=== PATIENT | male | born 1970 | race Caucasian/White ===

== ENCOUNTER 2017-12-30 15:59 | Emergency (ER) | payer MEDICAID ==
[~2017-12-30] VITALS: Ht 185.4 cm; Wt 81.8 kg
[~2017-12-30 15:59] MED LIST: ADVIL200 MG OR; ALPRAZOLAM2 M1 PO; AVELOX400 MG OR; CIPRO500 MG OR; DARVOCET-N 100100 MG OR; DOXYCYCL HYC100 MG PO; LISINOPRIL20 M1 PO; LOPRESSOR25 MG PO; LORTAB 5-325 MG1 TAB PO; METHADONE HCL10 MG PO; NAPROSYN500 MG PO; OXYCODONE HCL30 MG PO; OXYCODONE30 MG OR; PERCOCET 5/321 COMBO PO
[2017-12-30] MEDS ORDERED: BACTRIM DS1 TAB PO (16:58)
[2017-12-30] MEDS ORDERED: CIPRO XR500 MG PO (16:58)
[2017-12-30 17:26] VITALS: BP 147/89
== END 2017-12-30 17:26 | disposition home or self-care (01) | DRG 605 ==
LOC: ED 15:59
PROC: 0HQLXZZ Repair Left Lower Leg Skin, External Approach (ICD-10-PCS; principal; 2017-12-30)
DX: S81.812A Laceration without foreign body, left lower leg, initial encounter (principal); F17.210 Nicotine dependence, cigarettes, uncomplicated; W29.3XXA Contact with powered garden and outdoor hand tools and machinery, initial encounter; Y93.H2 Activity, gardening and landscaping

== ENCOUNTER 2018-01-12 19:10 | Emergency (ER) | payer MEDICAID ==
[~2018-01-12 19:10] MED LIST changes: +BACTRIM DS1 TAB PO; +CIPRO XR500 MG PO
[2018-01-13] MEDS ORDERED: BACTRIM DS1 TAB PO (17:56)
[2018-01-13] MEDS ORDERED: LEVAQUIN750 M1 PO (18:13)
== END 2018-01-12 19:40 | disposition left against medical advice (07) | DRG 951 ==
LOC: ED 19:10 → LWOBS 19:40
DX: Z91.19 Patient's noncompliance with other medical treatment and regimen (principal)

== ENCOUNTER 2018-01-13 17:28 | Emergency (ER) | payer MEDICAID ==
[~2018-01-13] VITALS: Ht 185.4 cm; Wt 84.0 kg
[2018-01-13] MEDS ORDERED: BACTRIM DS1 TAB PO (17:56)
[2018-01-13] MEDS ORDERED: LEVAQUIN750 M1 PO (18:13)
[2018-01-13 18:32] VITALS: BP 145/75
== END 2018-01-13 18:33 | disposition home or self-care (01) | DRG 863 ==
LOC: ED 17:28
PROC: 0H9LXZZ Drainage of Left Lower Leg Skin, External Approach (ICD-10-PCS; principal; 2018-01-13)
DX: T81.4XXA Infection following a procedure, initial encounter (principal); L02.416 Cutaneous abscess of left lower limb; R22.42 Localized swelling, mass and lump, left lower limb

== ENCOUNTER 2018-01-15 17:41 | Emergency (ER) | payer MEDICAID ==
[~2018-01-15] VITALS: Ht 185.4 cm; Wt 77.0 kg
[~2018-01-15 17:41] MED LIST changes: +LEVAQUIN750 M1 PO
[2018-01-15 18:50] VITALS: BP 135/77
== END 2018-01-15 18:50 | disposition home or self-care (01) | DRG 950 ==
LOC: ED 17:41
DX: S81.812D Laceration without foreign body, left lower leg, subsequent encounter (principal); Z48.01 Encounter for change or removal of surgical wound dressing

== ENCOUNTER 2018-11-13 14:10 | Emergency (ER) | payer MEDICAID ==
[~2018-11-13] VITALS: Ht 185.4 cm; Wt 75.0 kg
[2018-11-13] MEDS ORDERED: MOTRIN800 MG PO (14:21)
[2018-11-13] MEDS ORDERED: FLEXERIL PO (14:21)
[2018-11-13] MEDS ORDERED: TRAMADOL HYDROC50 MG PO (14:21)
[2018-11-13 14:30] VITALS: BP 145/88
== END 2018-11-13 14:30 | disposition home or self-care (01) ==
LOC: ED 14:10
DX: M54.5 Low back pain (principal); F17.200 Nicotine dependence, unspecified, uncomplicated

== ENCOUNTER 2019-05-03 19:05 | Observation (INO) | payer MEDICAID ==
[~2019-05-03] VITALS: Ht 185.4 cm; Wt 73.4 kg
[~2019-05-03 19:05] MED LIST changes: +FLEXERIL PO; +MOTRIN800 MG PO; +TRAMADOL HYDROC50 MG PO
[2019-05-03 20:08] LABS: HEMATOCRIT 45.9 % (39.0-50.0); HEMOGLOBIN 15.4 g/dl (14.0-18.0); IMMATURE GRANULOCYTES 0.7 % (0.0-5.0); MEAN CELL VOLUME 91.4 fL CALC (80.0-100.0); MEAN CORPUSCULAR HGB 30.7 pG CALC (26.0-32.0); MEAN CORPUSCULAR HGB CONC 33.6 g/L CALC (32.0-36.0); NEUT# 7.5 thou/uL (1.82-7.42); RED BLOOD COUNT 5.02 mill/uL (4.70-6.10); RED CELL DISTRI WIDTH 13.2 % (11.5-15.5)
[2019-05-03 20:11] LABS: ALBUMIN 4.4 g/dL (3.2-5.0); ALKALINE PHOSPHATASE 82 u/l (38-126); AMYLASE 51 u/l (30-110); BUN 11 mg/dL (9-20); BUN/CREATININE RATIO 14 (12-20 (CALC)); CHLORIDE 100 mmol/l (95-108); CREATININE 0.8 mg/dL (0.7-1.3); GFR > 60 ML/MIN (>=60 (CALC)); GFR FOR AFR.AMER. > 60 ML/MIN (>=60 (CALC)); LIPASE 22 u/l (23-300); POTASSIUM 4.5 mmol/l (3.5-5.1); SGOT/AST 31 u/l (17-59); SODIUM 139 mmol/l (137-146); TOTAL PROTEIN 7.5 g/dL (6.3-8.2)
[2019-05-03 20:17] LABS: ANION GAP 14 (6-22 (CALC)); BILIRUBIN, TOTAL 0.8 mg/dL (0.0-1.4); CARBON DIOXIDE 30 mmol/l (22-30)
[2019-05-03 20:23] LABS: MYOGLOBIN 41 ng/mL (0 - 121)
[2019-05-03 22:50] VITALS: BP 160/110
[2019-05-04 00:26] VITALS: BP 127/75
[2019-05-04 01:44] LABS: URINE BILIRUBIN - DIPSTICK NEGATIVE (NEGATIVE); URINE BLOOD DIPSTICK NEGATIVE (NEGATIVE); URINE COLOR YELLOW; URINE GLUCOSE - DIPSTICK NEGATIVE (NEGATIVE); URINE KETONE NEGATIVE (NEGATIVE); URINE LEUK ESTERASE NEGATIVE (NEGATIVE); URINE NITRITE - DIPSTICK NEGATIVE (Negative); URINE PH 6.5 (4.5-8.0); URINE PROTEIN - DIPSTICK NEGATIVE (NEG-TRACE); URINE UROBILINOGEN - DIPSTICK 0.2 E.U./dL (0.2)
[2019-05-04 01:46] LABS: BARBITURATES NEGATIVE (NEGATIVE); COCAINE NEGATIVE (NEGATIVE); METHADONE NEGATIVE (NEGATIVE); TETRAHYDROCANNABIONOL NEGATIVE (NEGATIVE); TRICYLIC ANTIDEPRESSANTS NEGATIVE (NEGATIVE)
[2019-05-04 01:47] LABS: OXCYCODONE NEGATIVE (NEGATIVE)
[2019-05-04 04:00] VITALS: BP 127/81
[2019-05-04 08:37] VITALS: BP 126/71
[2019-05-04 11:02] VITALS: BP 116/69
== END 2019-05-04 12:52 | disposition home or self-care (01) ==
LOC: ED 19:05 → ED-I 21:01 → ED 21:19 → MS2 21:20
PROVIDERS: Emergency Medicine; ADMIT Internal Medicine; ATTEND Internal Medicine
DX: R07.9 Chest pain, unspecified (principal); I15.8 Other secondary hypertension; F15.10 Other stimulant abuse, uncomplicated; F19.10 Other psychoactive substance abuse, uncomplicated; F17.290 Nicotine dependence, other tobacco product, uncomplicated; R51 Headache
CPT/HCPCS: G0378

== ENCOUNTER 2019-09-24 15:16 | Emergency (ER) | payer MEDICAID ==
[~2019-09-24] VITALS: Ht 185.4 cm; Wt 77.4 kg
[2019-09-24] MEDS ORDERED: METRONIDAZOL500 MG PO (15:50)
[2019-09-24] MEDS ORDERED: CLEOCIN300 MG PO (15:52)
[2019-09-24 16:18] VITALS: BP 150/105
== END 2019-09-24 16:17 | disposition home or self-care (01) ==
LOC: ED 15:16
DX: L03.011 Cellulitis of right finger (principal); Z20.2 Contact with and (suspected) exposure to infections with a predominantly sexual mode of transmission; N50.819 Testicular pain, unspecified; R36.9 Urethral discharge, unspecified; M79.644 Pain in right finger(s)

== ENCOUNTER 2020-02-20 | Emergency (ER) | payer MEDICAID ==
[~2020-02-20] MED LIST changes: +CLEOCIN300 MG PO; +METRONIDAZOL500 MG PO
[2020-02-20] MEDS ORDERED: TRIAMCINOLON0.025 % EX (23:21)
[2020-02-20] MEDS ORDERED: TRAMADOL HYDROC50 MG PO (23:21)
[2020-02-20] MEDS ORDERED: CLINDAMYCIN300 M1 PO (23:21)
[2020-02-20] MEDS ORDERED: BACTRIM DS1 TAB PO (23:21)
== END 2020-02-20 23:37 | disposition home or self-care (01) ==
DX: S70.362A Insect bite (nonvenomous), left thigh, initial encounter (principal); L03.116 Cellulitis of left lower limb; F17.290 Nicotine dependence, other tobacco product, uncomplicated; W57.XXXA Bitten or stung by nonvenomous insect and other nonvenomous arthropods, initial encounter; Z88.0 Allergy status to penicillin

== ENCOUNTER 2023-12-07 12:32 | Emergency (ER) | payer OTHER ==
[~2023-12-07] VITALS: Ht 185.4 cm; Wt 70.0 kg
[2023-12-07] VITALS (48 sets, daily range): BP systolic 135–192; BP diastolic 91–131
[~2023-12-07 12:32] MED LIST changes: +CLINDAMYCIN300 M1 PO; +TRIAMCINOLON0.025 % EX
[2023-12-07 12:53] LABS: BASO% 0.8 % (0-3); EOS% 10.6 % (0-8); HEMATOCRIT 44.9 % (39.0-50.0); IMMATURE GRANULOCYTES 0.5 % (0.0-5.0); LYMPH% 31.4 % (15-41); MEAN CELL VOLUME 90.9 fL CALC (80.0-100.0); MEAN CORPUSCULAR HGB 30.4 pG CALC (26.0-32.0); MEAN CORPUSCULAR HGB CONC 33.4 g/dL CAL (32.0-36.0); MONO% 6.2 % (2-13); NEUT# 6.64 thou/uL (1.82-7.42); NEUT% 50.5 % (42-76); RED BLOOD COUNT 4.94 mill/uL (4.70-6.10); RED CELL DISTRI WIDTH 12.6 % (11.5-15.5)
[2023-12-07 13:21] LABS: ALBUMIN 4.8 g/dL (3.2-5.0); ALKALINE PHOSPHATASE 95 u/l (38-126); ANION GAP 14 (6-22 (CALC)); BUN 16 mg/dL (9-20); BUN/CREATININE RATIO 16 (12-20 (CALC)); CARBON DIOXIDE 24 mmol/l (22-30); CHLORIDE 104 mmol/l (95-108); GFR FOR AFR.AMER. > 60 ML/MIN (>=60 (CALC)); GFR OTHER RACES > 60 ML/MIN (>=60 (CALC)); LIPASE 516 u/l (23-300); POTASSIUM 4.2 mmol/l (3.5-5.1); SGOT/AST 33 u/l (17-59); SODIUM 137 mmol/l (137-146); TOTAL PROTEIN 8.4 g/dL (6.3-8.2)
[2023-12-07 13:31] LABS: BILIRUBIN, TOTAL 0.4 mg/dL (0.2-1.3); DIGOXIN < 0.4 ng/mL (0.8-2.0)
[2023-12-07] MEDS ORDERED: ONDANSETRON4 MG PO (16:45)
[2023-12-07] MEDS ORDERED: TRAMADOL HYDROC50 M1 PO (16:45)
== END 2023-12-07 17:45 | disposition home or self-care (01) | DRG 440 ==
LOC: ED 12:32
PROVIDERS: Nurse Practitioner
DX: K85.90 Acute pancreatitis without necrosis or infection, unspecified (principal); F17.200 Nicotine dependence, unspecified, uncomplicated
CPT/HCPCS: Q9967